=== PATIENT | female | born 1975 | race African-American/Black ===

== ENCOUNTER 2023-03-21 13:09 | Outpatient (CLI) | payer MEDICAID, OTHER | END 2023-03-21 13:10 | disposition home or self-care (01) | LOC: MRI 13:09 → BICMRI 13:10 | PROVIDERS: ATTEND Neurological Surgery | DX: M47.12 Other spondylosis with myelopathy, cervical region (principal); M50.021 Cervical disc disorder at C4-C5 level with myelopathy; M50.022 Cervical disc disorder at C5-C6 level with myelopathy; M48.02 Spinal stenosis, cervical region; M50.023 Cervical disc disorder at C6-C7 level with myelopathy; M46.02 Spinal enthesopathy, cervical region | CPT/HCPCS: 72141 ==

== ENCOUNTER 2023-04-21 05:38 | Inpatient (IN) | payer OTHER ==
[2023-04-21] MEDS ORDERED: Vancomycin 1 GM VIAL ONE ×3 (06:10→15:31)
[2023-04-21] MEDS ORDERED: Thrombin 5000 UNITS/5 ML VIAL ONE ×2 (06:11→14:55)
[2023-04-21] MEDS ORDERED: Rocuronium Bromide 10 MG/ML (10ML VIAL) ONE ×2 (06:36→07:15)
[2023-04-21] MEDS ORDERED: PROPOFOL 20 ML ONE ×3 (06:36→16:01)
[2023-04-21] MEDS ORDERED: Lidocaine 1% PF 5 ML VIAL ONE ×2 (06:36→07:15)
[2023-04-21] MEDS ORDERED: Dexamethasone 20 MG/5 ML VIAL ONE ×2 (06:36→07:15)
[2023-04-21] MEDS ORDERED: HYDROmorphone 2 MG/ML VIAL ONE (06:36)
[2023-04-21] MEDS ORDERED: fentaNYL PF 100 MCG/2 ML SYRINGE ONE ×2 (06:36→16:24)
[2023-04-21] MEDS ORDERED: Midazolam HCl 2 mg/2 ml Vial ONE ×3 (06:36→16:17)
[2023-04-21] MEDS ORDERED: SUGAMMADEX SODIUM 200 MG/2 ML VIAL ONE (06:36)
[2023-04-21] MEDS ORDERED: Ondansetron PF 4 MG/2 ML Vial ONE ×2 (06:36→07:15)
[2023-04-21 06:38] LABS: Hematocrit 38.4 % (36.0-47.0); Hemoglobin 12.6 g/dL (12.0-16.0); Mean Corpuscular HGB CONC 32.8 g/dL (32.0-36.0); Mean Corpuscular Volume 100.5 fl (78.0-98.0); Platelet Count 217 10x3/uL (130-400); RBC Distribution Width 13.4 % (11.5-14.5); Red Blood Cell (RBC) Count 3.82 mill/uL (4.20-5.40); White Blood Cell (WBC) Count 5.4 10x3/uL (4.8-10.8)
[2023-04-21] MEDS ORDERED: Sodium Chloride 0.9% 100 ML ONE (06:38)
[2023-04-21] MEDS ORDERED: CEFAZOLIN 2 GM VIAL ONE (06:38)
[2023-04-21] MEDS ORDERED: Phenylephrine 40 MG/NS 250 ML 250 ML ONE (06:39)
[2023-04-21] MEDS ORDERED: Acetaminophen/Codeine 30-300mg Tablet PO PRN (06:47)
[2023-04-21] MEDS ORDERED: Morphine 2 MG/ML VIAL SLOW IVP PRN ×2 (06:47→18:00)
[2023-04-21] MEDS ORDERED: HYDROcodone/Acetaminophen 7.5/325 mg Tablet PO PRN (06:47)
[2023-04-21] MEDS ORDERED: diphenhydrAMINE 50 MG/ML VIAL IVP PRN (06:47)
[2023-04-21] MEDS ORDERED: HYDROcodone/Acetaminophen 10/325 mg Tablet PO PRN (06:47)
[2023-04-21 06:52] LABS: PTT 34.2 sec (22.9-36.1); Prothrombin Time 13.2 sec (12.0-14.7)
[2023-04-21 07:01] LABS: Anion Gap 16 mmol/L (10-20); BUN (Urea Nitrogen) 32 mg/dL (7.0-18.7); Calc. Creatinine Clearance 55 mL/min (70-130); Calcium 9.2 mg/dL (7.8-10.44); Carbon Dioxide 19 mmol/L (22-29); Chloride 108 mmol/L (98-107); Estimated GFR 37; Glucose 151 mg/dL (70-105); Potassium 4.4 mmol/L (3.5-5.1); Sodium 139 mmol/L (136-145)
[2023-04-21] MEDS ORDERED: Vecuronium 10 MG VIAL ONE ×6 (07:15→15:53)
[2023-04-21] MEDS ORDERED: PROPOFOL 200 MG/20 ML VIAL ONE (07:15)
[2023-04-21] MEDS ORDERED: PHENYLEPHRINE-NS 100 MCG/ML 10 ML SYRINGE ONE ×4 (07:15→16:59)
[2023-04-21] MEDS ORDERED: Albumin 5% 500 ML ONE ×2 (07:59→15:53)
[2023-04-21] MEDS ORDERED: Ondansetron HCl/PF 4 MG/2 ML Vial IVP PRN (11:48)
[2023-04-21] MEDS ORDERED: HYDROmorphone 2 MG/ML VIAL SLOW IVP PRN (11:48)
[2023-04-21] MEDS ORDERED: Promethazine HCl 25 MG/ML VIAL IM PRN (11:48)
[2023-04-21] MEDS ORDERED: HYDROmorphone 0.5 MG/0.5 ML SYRINGE ONE ×2 (12:23→12:32)
[2023-04-21] MEDS ORDERED: Labetalol HCl 100 MG/20 ML VIAL ONE (13:14)
[2023-04-21] MEDS ORDERED: hydrALAZINE 20 MG/ML VIAL ONE ×2 (14:04→14:57)
[2023-04-21] MEDS ORDERED: fentaNYL 50 mcg/mL 1 mL Vial ONE (14:36)
[2023-04-21] MEDS ORDERED: Propofol 1,000 MG/100 ML VIAL IV ONE ×2 (14:44→17:21)
[2023-04-21] MEDS ORDERED: Calcium Chloride 1 GM/10 ML Abboject SYRINGE ONE (15:04)
[2023-04-21 15:22] LABS: #Monocytes 0.4 thou/uL (0.11-0.59); %Basophils 0.1 % (0.0-1.0); %Lymphocytes 6.9 % (21.0-51.0); %Monocytes 3.9 % (0.0-10.0); %Neutrophils 88.5 % (42.0-75.0); Hematocrit 34.5 % (36.0-47.0); Hemoglobin 11.3 g/dL (12.0-16.0); Mean Corpuscular HGB CONC 32.8 g/dL (32.0-36.0); Mean Corpuscular Hemoglobin 33.1 pg (27.0-31.0); Mean Corpuscular Volume 101.2 fl (78.0-98.0); Mean Platelet Volume 8.8 fL (7.4-10.4); Platelet Count 181 10x3/uL (130-400); RBC Distribution Width 13.7 % (11.5-14.5); Red Blood Cell (RBC) Count 3.41 mill/uL (4.20-5.40); White Blood Cell (WBC) Count 9.1 10x3/uL (4.8-10.8)
[2023-04-21 15:37] LABS: INR-International Normal Ratio 1.1; PTT 32.3 sec (22.9-36.1); Prothrombin Time 14.2 sec (12.0-14.7)
[2023-04-21] MEDS ORDERED: Vasopressin 20 UNITS/ML VIAL ONE (15:53)
[2023-04-21] MEDS ORDERED: niCARdipine 25 MG/10 ML SDV ONE (16:06)
[2023-04-21] MEDS: Propofol 1,000 MG/100 ML VIAL IV PRN ×2 (17:20→22:30)
[2023-04-21] MEDS: Sodium Chloride 0.9% 1,000 ML IV SCH ×2 (17:39→20:12)
[2023-04-21] MEDS: CEFAZOLIN 2 GM in Sodium Chloride 0.9% 100 ML IVPB SCH ×2 (17:39→22:06)
[2023-04-21 17:48] LABS: Glucose POC Confirmation 202 mg/dL (70-105)
[2023-04-21 18:00] VITALS: BMI 31.3
[2023-04-21] MEDS ORDERED: DISCONTINUE PREVIOUS NARCOTIC PAIN MEDICATIONS AND BENZODIAZEPINES FS SCH (18:00)
[2023-04-21] MEDS ORDERED: Fentanyl CADD 100 ML IV SCH (18:00)
[2023-04-21] MEDS ORDERED: Fentanyl BOLUS 250 ML IVPB PRN (18:00)
[2023-04-21] MEDS ORDERED: Propofol BOLUS 1,000 MG/100 ML VIAL IV PRN (18:00)
[2023-04-21] MEDS ORDERED: Lorazepam 2 MG/ML VIAL SLOW IVP PRN (18:00)
[2023-04-21] MEDS: niCARdipine 25 MG in Sodium Chloride 0.9% 250 ML 250 ML IVPB SCH (20:11)
[2023-04-21] MEDS: Tacrolimus 0.5 MG CAP PO SCH (21:05)
[2023-04-21] MEDS: Mycophenolate DR 180 MG TAB PO SCH (21:05)
[2023-04-22] MEDS: Propofol 1,000 MG/100 ML VIAL IV PRN (03:20)
[2023-04-22 04:07] LABS: #Monocytes 0.8 thou/uL (0.11-0.59); #Neutrophils 4.6 thou/uL (1.40-6.50); %Basophils 0.3 % (0.0-1.0); %Eosinophils 0.4 % (0.0-10.0); %Lymphocytes 17.7 % (21.0-51.0); %Monocytes 12.2 % (0.0-10.0); %Neutrophils 68.4 % (42.0-75.0); Hematocrit 31.2 % (36.0-47.0); Hemoglobin 10.3 g/dL (12.0-16.0); Mean Platelet Volume 8.9 fL (7.4-10.4); Platelet Count 184 10x3/uL (130-400); RBC Distribution Width 13.4 % (11.5-14.5); Red Blood Cell (RBC) Count 3.12 mill/uL (4.20-5.40); White Blood Cell (WBC) Count 6.8 10x3/uL (4.8-10.8)
[2023-04-22 04:29] LABS: Anion Gap 13 mmol/L (10-20); BUN (Urea Nitrogen) 21 mg/dL (7.0-18.7); Calc. Creatinine Clearance 73 mL/min (70-130); Calcium 8.3 mg/dL (7.8-10.44); Carbon Dioxide 18 mmol/L (22-29); Chloride 109 mmol/L (98-107); Estimated GFR 50; Glucose 164 mg/dL (70-105); Potassium 3.9 mmol/L (3.5-5.1); Sodium 136 mmol/L (136-145)
[2023-04-22] MEDS: CEFAZOLIN 2 GM in Sodium Chloride 0.9% 100 ML IVPB SCH ×3 (06:43→23:45)
[2023-04-22] MEDS ORDERED: DC Sedation Protocol FS SCH (07:55)
[2023-04-22] MEDS ORDERED: predniSONE 20 MG TAB PO SCH (08:00)
[2023-04-22] MEDS ORDERED: Morphine 4 MG/ML VIAL ONE (08:24)
[2023-04-22] MEDS: Tacrolimus 0.5 MG CAP PO SCH ×2 (08:44→20:14)
[2023-04-22] MEDS: Mycophenolate DR 180 MG TAB PO SCH ×2 (08:44→20:13)
[2023-04-22] MEDS: Acetaminophen 325 MG TAB PO PRN (08:45)
[2023-04-22] MEDS: predniSONE 5 MG TAB PO SCH (08:54)
[2023-04-22] MEDS: Ondansetron PF 4 MG/2 ML Vial IVP PRN ×2 (08:54→20:20)
[2023-04-22] MEDS ORDERED: FLU VACC QS2023-24(6MOS UP)/PF 60 MCG/0.5 ML SYRINGE IM ONE (09:00)
[2023-04-22] MEDS: niCARdipine 25 MG in Sodium Chloride 0.9% 250 ML 250 ML IVPB SCH ×2 (09:01→12:07)
[2023-04-22] MEDS ORDERED: Acetaminophen/Codeine 30-300mg Tablet PO PRN (09:19)
[2023-04-22] MEDS ORDERED: HYDROcodone/Acetaminophen 7.5/325 mg Tablet PO PRN (09:21)
[2023-04-22] MEDS: HYDROcodone/Acetaminophen 10/325 mg Tablet PO PRN ×2 (10:26→14:32)
[2023-04-22] MEDS: Morphine 2 MG/ML VIAL SLOW IVP PRN ×4 (10:26→18:07)
[2023-04-22] MEDS: Cyanocobalamin (Vitamin B-12) 1,000 MCG TAB PO SCH (10:28)
[2023-04-22] MEDS: Multivitamin W/ Minerals 1 TAB PO SCH (10:28)
[2023-04-22] MEDS ORDERED: Carvedilol 6.25 MG TAB PO SCH (10:30)
[2023-04-22] MEDS ORDERED: Amlodipine 5 MG TAB PO SCH (10:30)
[2023-04-22] MEDS: Sodium Chloride 0.9% 1,000 ML IV SCH (10:36)
[2023-04-22] MEDS: Insulin Regular 300 UNITS/3 ML VIAL SC PRN ×3 (12:12→20:12)
[2023-04-22] MEDS ORDERED: Calcium Carbonate 500 MG ChewTAB PO SCH (13:00)
[2023-04-22] MEDS: Atorvastatin Calcium 10 MG TAB PO SCH (20:13)
[2023-04-22] MEDS: Carvedilol 6.25 MG TAB PO SCH (20:13)
[2023-04-23] MEDS ORDERED: Benzocaine 20% Spray 60 ML CAN PO PRN (00:20)
[2023-04-23] MEDS: HYDROcodone/Acetaminophen 10/325 mg Tablet PO PRN ×5 (00:36→20:04)
[2023-04-23] MEDS ORDERED: Propofol 1,000 MG/100 ML VIAL IV ONE (04:11)
[2023-04-23] MEDS: Insulin Regular 300 UNITS/3 ML VIAL SC PRN (06:05)
[2023-04-23] MEDS: Ondansetron PF 4 MG/2 ML Vial IVP PRN (07:41)
[2023-04-23] MEDS ORDERED: Glucagon 1 MG/ML KIT IM PRN (07:54)
[2023-04-23] MEDS ORDERED: Dextrose 50% Abboject 50 ML SYRINGE SLOW IVP PRN (07:54)
[2023-04-23] MEDS ORDERED: Dextrose 5% in Water 1,000 ML IV PRN (07:54)
[2023-04-23] MEDS: Mycophenolate DR 180 MG TAB PO SCH ×2 (08:03→20:06)
[2023-04-23] MEDS: CEFAZOLIN 2 GM in Sodium Chloride 0.9% 100 ML IVPB SCH ×3 (08:03→22:16)
[2023-04-23] MEDS: Tacrolimus 0.5 MG CAP PO SCH ×2 (08:03→20:06)
[2023-04-23] MEDS: Carvedilol 6.25 MG TAB PO SCH ×2 (08:04→20:05)
[2023-04-23] MEDS: Cyanocobalamin (Vitamin B-12) 1,000 MCG TAB PO SCH (08:04)
[2023-04-23] MEDS: Amlodipine 5 MG TAB PO SCH (08:04)
[2023-04-23] MEDS: predniSONE 5 MG TAB PO SCH (08:04)
[2023-04-23] MEDS: Multivitamin W/ Minerals 1 TAB PO SCH (08:04)
[2023-04-23] MEDS: HumaLOG 300 UNITS/3 ML VIAL SC PRN ×2 (10:52→15:41)
[2023-04-23] MEDS ORDERED: chlorproMAZINE HCl 25 MG in Sodium Chloride 0.9% 50 ML IVPB SCH (11:00)
[2023-04-23] MEDS: tiZANidine HCl 4 MG TAB PO PRN (13:25)
[2023-04-23] MEDS: Atorvastatin Calcium 10 MG TAB PO SCH (20:06)
[2023-04-23] MEDS ORDERED: HumaLOG 300 UNITS/3 ML VIAL SC PRN (22:27)
[2023-04-23] MEDS: Insulin Glargine 30 UNITS/0.3 ML VIAL SC SCH (22:38)
[2023-04-24] MEDS: HYDROcodone/Acetaminophen 10/325 mg Tablet PO PRN ×3 (01:31→23:44)
[2023-04-24] MEDS: CEFAZOLIN 2 GM in Sodium Chloride 0.9% 100 ML IVPB SCH ×3 (07:43→23:49)
[2023-04-24] MEDS: HumaLOG 300 UNITS/3 ML VIAL SC PRN ×2 (07:43→12:33)
[2023-04-24] MEDS: tiZANidine HCl 4 MG TAB PO PRN ×2 (07:45→17:20)
[2023-04-24] MEDS: Ondansetron PF 4 MG/2 ML Vial IVP PRN (07:51)
[2023-04-24] MEDS: Mycophenolate DR 180 MG TAB PO SCH ×2 (08:32→21:53)
[2023-04-24] MEDS: Carvedilol 6.25 MG TAB PO SCH ×2 (08:33→21:49)
[2023-04-24] MEDS: Multivitamin W/ Minerals 1 TAB PO SCH (08:33)
[2023-04-24] MEDS: predniSONE 5 MG TAB PO SCH (08:33)
[2023-04-24] MEDS: Cyanocobalamin (Vitamin B-12) 1,000 MCG TAB PO SCH (08:33)
[2023-04-24] MEDS: Amlodipine 5 MG TAB PO SCH (08:33)
[2023-04-24] MEDS: Tacrolimus 0.5 MG CAP PO SCH ×2 (08:33→21:51)
[2023-04-24] MEDS: Insulin Glargine 30 UNITS/0.3 ML VIAL SC SCH ×3 (08:34→21:50)
[2023-04-24] MEDS: Acetaminophen 325 MG TAB PO PRN (10:01)
[2023-04-24 10:07] LABS: #Eosinphils 0.1 thou/uL (0.0-0.7); #Monocytes 0.7 thou/uL (0.11-0.59); #Neutrophils 3.2 thou/uL (1.40-6.50); %Basophils 0.6 % (0.0-1.0); %Eosinophils 1.9 % (0.0-10.0); %Lymphocytes 24.9 % (21.0-51.0); %Monocytes 12.3 % (0.0-10.0); Hematocrit 29.8 % (36.0-47.0); Hemoglobin 9.5 g/dL (12.0-16.0); Mean Corpuscular HGB CONC 31.9 g/dL (32.0-36.0); Mean Corpuscular Hemoglobin 33.2 pg (27.0-31.0); Mean Corpuscular Volume 104.2 fl (78.0-98.0); Mean Platelet Volume 9.3 fL (7.4-10.4); Platelet Count 192 10x3/uL (130-400); RBC Distribution Width 13.3 % (11.5-14.5); Red Blood Cell (RBC) Count 2.86 mill/uL (4.20-5.40); White Blood Cell (WBC) Count 5.4 10x3/uL (4.8-10.8)
[2023-04-24 10:17] LABS: Anion Gap 10 mmol/L (10-20); BUN (Urea Nitrogen) 30 mg/dL (7.0-18.7); Calc. Creatinine Clearance 45 mL/min (70-130); Calcium 8.3 mg/dL (7.8-10.44); Carbon Dioxide 21 mmol/L (22-29); Chloride 105 mmol/L (98-107); Estimated GFR 27; Glucose 250 mg/dL (70-105); Sodium 132 mmol/L (136-145)
[2023-04-24] MEDS ORDERED: Ondansetron ODT 4 MG TAB PO PRN ×2 (10:27→10:30)
[2023-04-24] MEDS: Sodium Chloride 0.9% 1,000 ML IV SCH (18:26)
[2023-04-24] MEDS: Atorvastatin Calcium 10 MG TAB PO SCH (21:49)
[2023-04-25] MEDS: Acetaminophen 325 MG TAB PO PRN (03:59)
[2023-04-25] MEDS: tiZANidine HCl 4 MG TAB PO PRN (03:59)
[2023-04-25] MEDS: CEFAZOLIN 2 GM in Sodium Chloride 0.9% 100 ML IVPB SCH (08:47)
[2023-04-25] MEDS: Insulin Glargine 30 UNITS/0.3 ML VIAL SC SCH (08:50)
[2023-04-25] MEDS: Amlodipine 5 MG TAB PO SCH (08:53)
[2023-04-25] MEDS: Carvedilol 6.25 MG TAB PO SCH (08:53)
[2023-04-25] MEDS: Cyanocobalamin (Vitamin B-12) 1,000 MCG TAB PO SCH (08:54)
[2023-04-25] MEDS: Multivitamin W/ Minerals 1 TAB PO SCH (08:54)
[2023-04-25] MEDS: predniSONE 5 MG TAB PO SCH (08:54)
[2023-04-25 10:13] LABS: #Eosinphils 0.1 thou/uL (0.0-0.7); #Monocytes 0.6 thou/uL (0.11-0.59); #Neutrophils 2.4 thou/uL (1.40-6.50); %Basophils 0.5 % (0.0-1.0); %Lymphocytes 26.5 % (21.0-51.0); %Monocytes 12.8 % (0.0-10.0); Hematocrit 29.6 % (36.0-47.0); Hemoglobin 9.7 g/dL (12.0-16.0); Mean Corpuscular HGB CONC 32.8 g/dL (32.0-36.0); Mean Corpuscular Hemoglobin 33.2 pg (27.0-31.0); Mean Corpuscular Volume 101.4 fl (78.0-98.0); Mean Platelet Volume 9.1 fL (7.4-10.4); Platelet Count 187 10x3/uL (130-400); RBC Distribution Width 13.2 % (11.5-14.5); Red Blood Cell (RBC) Count 2.92 mill/uL (4.20-5.40); White Blood Cell (WBC) Count 4.3 10x3/uL (4.8-10.8)
[2023-04-25 10:39] LABS: Anion Gap 8 mmol/L (10-20); BUN (Urea Nitrogen) 27 mg/dL (7.0-18.7); Calc. Creatinine Clearance 58 mL/min (70-130); Calcium 8.6 mg/dL (7.8-10.44); Carbon Dioxide 24 mmol/L (22-29); Chloride 109 mmol/L (98-107); Estimated GFR 37; Glucose 224 mg/dL (70-105); Potassium 4.1 mmol/L (3.5-5.1); Sodium 137 mmol/L (136-145)
[2023-04-25] MEDS: Mycophenolate DR 180 MG TAB PO SCH (10:56)
[2023-04-25] MEDS: Tacrolimus 0.5 MG CAP PO SCH (10:57)
[2023-04-25] MEDS: HYDROcodone/Acetaminophen 10/325 mg Tablet PO PRN ×2 (11:08→15:38)
[2023-04-25] MEDS: Sodium Chloride 0.9% 1,000 ML IV SCH (11:14)
[2023-04-25] MEDS: HumaLOG 300 UNITS/3 ML VIAL SC PRN (11:18)
[2023-04-25 13:54] LABS: Anion Gap 10 mmol/L (10-20); BUN (Urea Nitrogen) 23 mg/dL (7.0-18.7); Calc. Creatinine Clearance 73 mL/min (70-130); Calcium 8.3 mg/dL (7.8-10.44); Carbon Dioxide 22 mmol/L (22-29); Chloride 111 mmol/L (98-107); Estimated GFR 49; Glucose 121 mg/dL (70-105); Potassium 3.7 mmol/L (3.5-5.1); Sodium 139 mmol/L (136-145)
[2023-04-25 15:34] VITALS: BP 165/90; TEMP 97.9
[2023-04-26 00:12] LABS: Tacrolimus 3.8 ng/mL (2.0-20.0)
== END 2023-04-25 17:25 | disposition home or self-care (01) | DRG 907 ==
LOC: SDC 05:38 → CCU 17:09 → OBSVTOIN 04-22 20:48 → SURG A 04-24 09:25
PROVIDERS: ADMIT Neurological Surgery; ATTEND Neurological Surgery
PROC: 0RG20A0 Fusion of 2 or more Cervical Vertebral Joints with Interbody Fusion Device, Anterior Approach, Anterior Column, Open Approach (ICD-10-PCS; principal; 2023-04-21)
PROC: 01N10ZZ Release Cervical Nerve, Open Approach (ICD-10-PCS; 2023-04-21)
PROC: 00NW0ZZ Release Cervical Spinal Cord, Open Approach (ICD-10-PCS; 2023-04-21)
PROC: 0RT30ZZ Resection of Cervical Vertebral Disc, Open Approach (ICD-10-PCS; 2023-04-21)
PROC: 0KC20ZZ Extirpation of Matter from Right Neck Muscle, Open Approach (ICD-10-PCS; 2023-04-21)
PROC: 30233J1 Transfusion of Nonautologous Serum Albumin into Peripheral Vein, Percutaneous Approach (ICD-10-PCS; 2023-04-21)
PROC: 3E033XZ Introduction of Vasopressor into Peripheral Vein, Percutaneous Approach (ICD-10-PCS; 2023-04-21)
PROC: 5A1935Z Respiratory Ventilation, Less than 24 Consecutive Hours (ICD-10-PCS; 2023-04-21)
PROC: 0BH17EZ Insertion of Endotracheal Airway into Trachea, Via Natural or Artificial Opening (ICD-10-PCS; 2023-04-21)
DX: M96.840 Postprocedural hematoma of a musculoskeletal structure following a musculoskeletal system procedure (principal); J96.00 Acute respiratory failure, unspecified whether with hypoxia or hypercapnia; E87.1 Hypo-osmolality and hyponatremia; M50.01 Cervical disc disorder with myelopathy, high cervical region; N17.9 Acute kidney failure, unspecified; I13.0 Hypertensive heart and chronic kidney disease with heart failure and stage 1 through stage 4 chronic kidney disease, or unspecified chronic kidney disease; Z94.0 Kidney transplant status; M50.11 Cervical disc disorder with radiculopathy, high cervical region; M50.123 Cervical disc disorder at C6-C7 level with radiculopathy; E11.22 Type 2 diabetes mellitus with diabetic chronic kidney disease; G89.29 Other chronic pain; I50.9 Heart failure, unspecified; E87.5 Hyperkalemia; E66.9 Obesity, unspecified; E78.5 Hyperlipidemia, unspecified; N18.30 Chronic kidney disease, stage 3 unspecified; D63.1 Anemia in chronic kidney disease; E11.42 Type 2 diabetes mellitus with diabetic polyneuropathy; Z98.890 Other specified postprocedural states; Z98.41 Cataract extraction status, right eye; Z98.42 Cataract extraction status, left eye; Z98.891 History of uterine scar from previous surgery; Z98.51 Tubal ligation status; Z90.49 Acquired absence of other specified parts of digestive tract; Z83.3 Family history of diabetes mellitus; Z80.9 Family history of malignant neoplasm, unspecified; Z82.49 Family history of ischemic heart disease and other diseases of the circulatory system; Z68.31 Body mass index [BMI] 31.0-31.9, adult; Z79.4 Long term (current) use of insulin; Y83.8 Other surgical procedures as the cause of abnormal reaction of the patient, or of later complication, without mention of misadventure at the time of the procedure
CPT/HCPCS: 36415; 36416; 71045; 76770; 80048; 80197; 85025; 85027; 85610; 85730; 93005; 93010; 94002; 94003; A4314; C1713; J0360; J1100; J1170; J1200; J1815; J2250; J2270; J2272; J2405; J2704; J3010; J3230; J3370; J3490; J7050; J7507; J7512; J7518; P9045